=== PATIENT | female | born 1935 | race Caucasian/White ===

== ENCOUNTER 2018-03-05 15:56 | Emergency (ER) | payer MEDICARE ==
[~2018-03-05] VITALS: Ht 167.6 cm; Wt 57.2 kg
[~2018-03-05 15:56] MED LIST: ASPIR 8181 MG PO; BENICAR HCT 201 EACH PO; CELEXA20 MG PO; DAILY VITE1 EACH PO; DIGOXIN125 MCG PO
== END 2018-03-05 17:57 | disposition home or self-care (01) ==
LOC: ER 15:56
DX: L03.116 Cellulitis of left lower limb (principal); S70.362A Insect bite (nonvenomous), left thigh, initial encounter; I48.91 Unspecified atrial fibrillation; F41.9 Anxiety disorder, unspecified
CPT/HCPCS: 93005; 99283

== ENCOUNTER 2018-11-02 19:25 | Observation (INO) | payer MEDICARE ==
[~2018-11-02] VITALS: Ht 167.6 cm; Wt 60.5 kg
--- NOTE | 2018-11-02 19:46 | NUR ---
PT TO RAD FOR STAT CT BRAIN VIA WC
--- NOTE | 2018-11-02 20:09 | Diagnostic Imaging Report ---
EXAMINATION: Head CT without contrast. HISTORY:Intermittent confusion. COMPARISON:CT brain from 10/06/2011. TECHNIQUE: Multidetector axial images were obtained from the foramen magnum to the vertex without contrast. The images were reconstructed using brain and bone algorithms. Thin section brain images were reformatted into coronal and sagittal planes. Dose modulation, iterative reconstruction, and/or weight based adjustment of the mA/kV was utilized to reduce the radiation dose to as low as reasonably achievable. Intravenous contrast: None IMAGE QUALITY: Acceptable. FINDINGS: Skull/scalp: Incidental 1.4 cm subcutaneous soft tissue density lesion in right occipital scalp possibly represents an epidermal inclusion cyst. Parenchyma: Nonspecific few, scattered supratentorial white matter hypodensity are likely related to small vessel ischemic changes. No acute hemorrhage, mass or acute major vascular territorial infarct. Arteries: No density suggestive of thrombosis. Dural sinuses: No abnormal density suggestive of thrombosis. Ventricles: Mild compensated dilatation due to volume loss. No hydrocephalus. Extra-axial spaces: No abnormal density. Brain volume: Generalized age-related cerebral volume loss. Craniocervical junction: No mass, Chiari malformation, or basilar invagination. Sella: No mass. Paranasal/mastoid sinuses: Imaged portions unremarkable. IMPRESSION: 1. No acute intracranial abnormality, particularly no acute hemorrhage, mass or acute major vascular territorial infarct. 2. Mild supratentorial white matter microvascular ischemic changes. 3. Generalized age-related cerebral volume loss. Signed by: Dr. Gabriela Avila M.D. on 11/02/2018 8:06 PM
[2018-11-02 20:27] LABS: BASOPHILS # (AUTO) 0.1 (0.0-0.1); BASOPHILS % 0.5 % (0.0-1.0); EOSINOPHILS # (AUTO) 0.1 (0.0-0.4); EOSINOPHILS % 0.5 % (0.0-6.0); HEMOGLOBIN 14.3 g/dL (12.0-16.0); LYMPHOCYTES # (AUTO) 5.7 (1.0-3.2); LYMPHOCYTES % 58.3 % (18.0-39.1); MEAN CORPUSCULAR HEMOGLOBIN 30.7 pg (28-32); MEAN CORPUSCULAR HGB CONC 33.3 g/dL (31-35); MEAN CORPUSCULAR VOLUME 92.3 fL (81-99); MONOCYTES # (AUTO) 0.6 (0.2-0.8); MONOCYTES % 6.1 % (4.4-11.3); NEUTROPHILS # (AUTO) 3.4 (2.1-6.9); NEUTROPHILS % 34.3 % (38.7-80.0); PLATELET COUNT 237 x10e3/uL (140-360); RED BLOOD COUNT 4.66 x10e6/uL (3.6-5.1); RED CELL DISTRIBUTION WIDTH 12.8 % (11.7-14.4)
[2018-11-02 20:45] LABS: ALANINE AMINOTRANSFERASE 24 IU/L (0-55); ALBUMIN 3.5 g/dL (3.5-5.0); ALBUMIN/GLOBULIN RATIO 1.1 (0.8-2.0); ALKALINE PHOSPHATASE 81 IU/L (40-150); ANION GAP 13.7 mmol/L (8-16); BLOOD UREA NITROGEN 18 mg/dL (7-26); BUN/CREATININE RATIO 24 (6-25); CALCIUM 9.4 mg/dL (8.4-10.2); CARBON DIOXIDE 24 mmol/L (22-29); CHLORIDE 107 mmol/L (98-107); CREATINE KINASE 84 IU/L (29-168); CREATININE, SERUM 0.74 mg/dL (0.57-1.11); EST GLOMERULAR FILTRATION RATE > 60 ML/MIN (60-); GLUCOSE 118 mg/dL (74-118); POTASSIUM 3.7 mmol/L (3.5-5.1); SODIUM 141 mmol/L (136-145)
--- NOTE | 2018-11-02 20:52 | Diagnostic Imaging Report ---
EXAMINATION: CHEST 2 VIEWS INDICATION: ^CONFUSION, ORAL TEMP 99.6 F, CONGESTION PER PT, NONE NOTED ^[id number] ^1939 ^Y COMPARISON: None FINDINGS: TUBES and LINES: None. LUNGS: Lungs are well inflated. Lungs are clear. There is no evidence of pneumonia or pulmonary edema. PLEURA: No pleural effusion or pneumothorax. HEART AND MEDIASTINUM: The cardiomediastinal silhouette is unremarkable. BONES AND SOFT TISSUES: No acute osseous lesion. Soft tissues are unremarkable. UPPER ABDOMEN: No free air under the diaphragm. IMPRESSION: No acute thoracic abnormality. Signed by: Dr. Pushpa Ayon M.D. on 11/02/2018 8:49 PM
[2018-11-02 21:19] LABS: CLARITY,URINE CLEAR (CLEAR); COLOR,URINE YELLOW (YELLOW)
[2018-11-02 21:20] LABS: BACTERIA,URINE FEW /HPF; BILIRUBIN,URINE NEGATIVE (NEGATIVE); EPITHELIAL CELLS,URINE FEW /LPF; KETONES,URINE NEGATIVE (NEGATIVE); LEUKOCYTE ESTERASE ,URINE NEGATIVE (NEGATIVE); NITRITE,URINE NEGATIVE (NEGATIVE); PROTEIN,URINE DIPSTICK NEGATIVE (NEGATIVE); URINE UROBILINOGEN 0.2 mg/dL (0.2 - 1)
[2018-11-02] MEDS ORDERED: BENICAR20 MG PO (22:03)
[2018-11-02] MEDS ORDERED: PROPAFENONE HC150 MG PO (22:04)
[2018-11-02] MEDS ORDERED: WARFARIN SODIU2.5 MG PO (22:06)
[2018-11-02] MEDS ORDERED: WARFARIN SODIUM5 MG PO (22:06)
[2018-11-02 22:56] LABS: INR 2.52
[2018-11-02 22:57] LABS: PARTIAL THROMBOPLASTIN TIME 36.5 seconds (23.8-35.5)
[2018-11-02] MEDS ORDERED: ONDANSETRON HCL INJ 2 MG/ML VIAL IV PRN (23:30)
[2018-11-02] MEDS: SODIUM CHLORIDE 0.9% 1000ML 1,000 ML IV SCH (23:32)
[2018-11-02] MEDS ORDERED: SODIUM CHLORIDE 0.9% 1000ML 1,000 ML ONE (23:33)
--- NOTE | 2018-11-03 00:15 | NUR ---
PT AMBULATED TO BATHROOM, HOSPITAL BED PLACED INTO ROOM FOR COMFORT. PT HAS NO COMPLAINTS AT THIS TIME. WILL CONTINUE TO MONITOR
[2018-11-03 04:47] LABS: BASOPHILS % 0.3 % (0.0-1.0); EOSINOPHILS # (AUTO) 0.1 (0.0-0.4); EOSINOPHILS % 0.8 % (0.0-6.0); HEMOGLOBIN 13.8 g/dL (12.0-16.0); LYMPHOCYTES # (AUTO) 6.5 (1.0-3.2); LYMPHOCYTES % 65.7 % (18.0-39.1); MEAN CORPUSCULAR HEMOGLOBIN 30.8 pg (28-32); MEAN CORPUSCULAR HGB CONC 32.9 g/dL (31-35); MEAN CORPUSCULAR VOLUME 93.8 fL (81-99); MONOCYTES # (AUTO) 0.6 (0.2-0.8); MONOCYTES % 6.2 % (4.4-11.3); NEUTROPHILS # (AUTO) 2.7 (2.1-6.9); NEUTROPHILS % 26.8 % (38.7-80.0); PLATELET COUNT 217 x10e3/uL (140-360); RED BLOOD COUNT 4.48 x10e6/uL (3.6-5.1); RED CELL DISTRIBUTION WIDTH 12.7 % (11.7-14.4)
[2018-11-03 05:10] LABS: ANION GAP 12.6 mmol/L (8-16); BLOOD UREA NITROGEN 15 mg/dL (7-26); BUN/CREATININE RATIO 25 (6-25); CALCIUM 9.2 mg/dL (8.4-10.2); CARBON DIOXIDE 24 mmol/L (22-29); CHLORIDE 106 mmol/L (98-107); CHOL/HDL RATIO 3.1 (3.0-3.6); CHOLESTEROL 172 MD/DL (0-199); CREATININE, SERUM 0.61 mg/dL (0.57-1.11); EST GLOMERULAR FILTRATION RATE > 60 ML/MIN (60-); GLUCOSE 93 mg/dL (74-118); HDL CHOLESTEROL 55 MG/DL (40-60); LDL CHOLESTEROL 101 MG/DL (60-130); POTASSIUM 3.6 mmol/L (3.5-5.1); SODIUM 139 mmol/L (136-145); TRIGLYCERIDES 78 MG/DL (0-149)
--- OUTSIDE RECORDS SUMMARY | 2018-11-03 05:21 | XMS REPORT ---
Author [facility] Address Unknown Phone Unavailable Care Team Providers Care Air Conditioning Technician Name Role Phone Som RIVERA Unavailable Unavailable Problems This patient has no known problems. Allergies, Adverse Reactions, Alerts This patient has no known allergies or adverse reactions. Medications This patient has no known medications. Results Test Description Test Time Test Comments Text Results Atomic Results Result Comments CHEST 2 VIEWS 2018-11-02 20:45:00 [facility] [address] [address] Patient Name: LEEANNA DE LUNA MR #: [id number] : 1935 Age/Sex: 83/F Req #: [id number] Adm Physician: Ordered by: YAN RIVERA MD Report #: [id number] Location: ER Room/Bed: Procedure: [id number] DX/CHEST 2 VIEWS Exam Date: 11/02/18 Exam Time: 1939 REPORT STATUS: Signed EXAMINATION: CHEST 2 VIEWS INDICATION: CONFUSION, ORAL TEMP 99.6 F, CONGESTION PER PT, NONE NOTED [id number] Y COMPARISON: None FINDINGS: TUBES and LINES: None. LUNGS: Lungs are well inflated. Lungs are clear. There is no evidence of pneumonia or pulmonary edema. PLEURA: No pleural effusion or pneumothorax. HEART AND MEDIASTINUM: The cardiomediastinal silhouette is unremarkable. BONES AND SOFT TISSUES: No acute osseous lesion. Soft tissues are unremarkable. UPPER ABDOMEN: No free air under the diaphragm. IMPRESSION: No acute thoracic abnormality. Signed by: Dr. Pushpa Lopez M.D. on 11/02/2018 8:49 PM Dictated By: MUNA LOPEZ MD, MD 48 Transcribed By: KOREY on 11/02/182048 COPY TO: YAN RIVERA MD CT BRAIN WO 2018-11-02 20:02:00 [address] [place] [address] Patient Name: LEEANNA DE LUNA MR #: [id number] : 1935 Age/Sex: 83/F Req #: [id number] Adm Physician: Ordered by: YAN RIVERA MD Report #: [id number] Location: ER Room/Bed: Procedure: [id number] CT/CT BRAIN WO Exam Date: 11/02/18 Exam Time: 1939 REPORT STATUS: Signed EXAMINATION: Head CT without contrast. HISTORY:Inter mittent confusion. COMPARISON:CT brain from 10/06/2011. TECHNIQUE: Multidetector axial images were obtained from the foramen magnum to the vertex without contrast. The images were reconstructed using brain and bone algorithms. Thin section brain images were reformatted into coronal and sagittal planes. Dose modulation, iterative reconstruction, and/or weight based adjustment of the mA/kV was utilized to reduce the radiation dose to as low as reasonably achievable. Intravenous contrast: None IMAGE QUALITY: Acceptable. FINDINGS: Skull/scalp: Incidental 1.4 cm subcutaneous soft tissue density lesion in right occipital scalp possibly represents an epidermal inclusion cyst. Parenchyma: Nonspecific few, scattered supratentorial white matter hypodensity are likely related to small vessel ischemic changes. No acute hemorrhage, mass or acute major vascular territorial infarct. Arteries: No density suggestive of thrombosis. Dural sinuses: No abnormal density suggestive of thrombosis. Ventricles: Mild compensated dilatation due to volume loss. No hydrocephalus. Extra-axial spaces: No abnormal density. Brain volume: Generalized age-related cerebral volume loss. Craniocervical junction: No mass, Chiari malformation, or basilar invagination. Sella: No mass. Paranasal/mastoid sinuses: Imaged portions unremarkable. IMPRESSION: 1. No acute intracranial abnormality, particularly no acute hemorrhage, mass or acute major vascular territorial infarct. 2. Mild supratentorial white matter microvascular ischemic changes. 3. Generalized age-related cerebral volume loss. Signed by: Dr. Gabriela Avila M.D. on 11/02/2018 8:06 PM Dictated By: GABRIELA AVILA MD 05 Transcribed By: KOREY on 11/02/182005 COPY TO: YAN RIVERA MD
--- NOTE | 2018-11-03 05:38 | NUR ---
DR LESLIE AT BEDSIDE ASSESSING PT
[2018-11-03 05:47] LABS: CREATINE KINASE 60 IU/L (29-168)
--- NOTE | 2018-11-03 06:30 | History and Physical ---
REASON FOR ADMISSION: TIA. HISTORY OF PRESENT ILLNESS: Patient is a lady well known to me with a history of AFib, hypertension, who was in her usual state of health where she had a sudden onset around 4 p.m. of confusion, difficulty speaking where she also noticed her blood pressure to be on the elevated side. She then presented to the emergency room where she is currently doing well. States at the current time that she feels like her symptoms have resolved. Initial workup in the ER is unremarkable. PAST MEDICAL HISTORY: Significant for hypertension, AFib. MEDICATIONS: See DEC. ALLERGIES: SEE DEC. SOCIAL HISTORY: Lives at home with her . Nonsmoker and nondrinker. FAMILY HISTORY: Hypertension. PHYSICAL EXAMINATION VITALS: Temperature is 98 degrees, blood pressure 156/72, pulse 80, sats 98% on room air. GENERAL: She is in no apparent distress laying in bed. NECK: Supple. No lymphadenopathy. No . No . HEART: Irregularly irregular. LUNGS: Clear to auscultation bilaterally. ABDOMEN: Good bowel sounds. Soft and nontender. EXTREMITIES: No clubbing or cyanosis. NEUROLOGICAL: Nonfocal. Moves all extremities times 4. Cranial nerves II-XII are intact. ASSESSMENT AND PLAN 1. Transient ischemic attack: Appears to have resolved. Will go ahead and do the workup with carotid Dopplers and MRI. Consult Dr. Ochoa from neurology. 2. Hypertension: Will continue with home medications and monitor blood pressure. 3. History of atrial fibrillation: Will continue with her Coumadin until she is therapeutic on Rythmol. 4. History of anxiety: Hold off on for the time being due to the just to see if she needs this anymore. Please see hospital chart for details. Job#: [id number] VIRGILIO
[2018-11-03] MEDS: SODIUM CHLORIDE 0.9% 1000ML 1,000 ML IV SCH ×2 (06:51→17:37)
--- NOTE | 2018-11-03 06:54 | NUR ---
RECEIVED REPORT FROM KATHLEEN Crump RN FOR CONTINUATION OF CARE. PT RESTING QUIETLY WITH EYES CLOSED. EASILY AROUSES TO VOICE. NAD AT THIS TIME. AWAITING ADMISSION
--- NOTE | 2018-11-03 07:03 | NUR ---
PT AMBULATED TO THE RESTROOM WITH STEADY GAIT.
--- NOTE | 2018-11-03 07:04 | NUR ---
PER REPORT PT PENDING MRI, CAROTID DOPPLER AND ECHO
[2018-11-03 07:24] LABS: ANISOCYTOSIS SLIGHT; EOSINOPHILS % (MANUAL) 1 % (0-7); HYPOCHROMASIA SLIGHT; LYMPHOCYTES % (MANUAL) 62 % (19-48); MONOCYTES % (MANUAL) 7 % (3.4-9.0); NEUTROPHILS % (MANUAL) 26 % (40-74); RBC MORPHOLOGY COMMENT NORMAL
[2018-11-03 07:25] LABS: PLATELET ESTIMATE ADEQUATE; PLATELET MORPHOLOGY COMMENT NORMAL
--- NOTE | 2018-11-03 08:07 | NUR ---
CALLED DR. FLOWER TO NOTIFY HER OF CONSULT
--- NOTE | 2018-11-03 08:11 | NUR ---
CALLED [facility] FOR FOOD TRAY FOR PATIENT
--- NOTE | 2018-11-03 08:30 | NUR ---
ECHO WAS DONE AT BEDSIDE
--- NOTE | 2018-11-03 09:06 | NUR ---
SPOKE WITH DR. LESLIE ABOUT CONTINUING PTS CELEXA. SHE WAS UPSET THAT IT WASN'T CONTINUED. SHE SAYS THAT SHE HAS TO HAVE IT
[2018-11-03] MEDS: PROPAFENONE HCL 150 MG TAB PO SCH ×2 (09:25→22:06)
[2018-11-03] MEDS: ASPIRIN 81 MG ENTERIC COATED PO SCH (09:25)
[2018-11-03] MEDS: CITALOPRAM HYDROBROMIDE 20 MG TAB PO SCH (09:25)
[2018-11-03] MEDS: OLMESARTAN 20 MG TAB PO SCH (10:25)
--- NOTE | 2018-11-03 12:24 | Diagnostic Imaging Report ---
Examination: MRI BRAIN WITHOUT CONTRAST History: 83 year old female with disorientation. Comparison studies: Brain CT 11/02/2018. Technique: Sagittal T2; axial DWI, FLAIR, GRE or SWI, T1, Coronal FLAIR. Intravenous contrast: None Findings: Scalp: No abnormal signal. No masses. Bone marrow: Normal in signal intensity. Brain volume: Age appropriate volume loss. Ventricles: Ex vacuo dilation. No hydrocephalus. Extra-axial spaces: No abnormalities. Parenchyma: There are patchy and punctate areas of T2/FLAIR hyperintensity in the periventricular and subcortical white matter, nonspecific. No masses, hemorrhage, or acute vascular insults. Suprasellar and sellar region: No abnormalities. Craniocervical junction: No abnormalities. The foramen magnum is patent. No Chiari malformations. Vessels: Normal flow-voids in the arteries and sinuses. Additional findings: Bilateral cataracts. Mild inflammatory mucosal thickening of the bilateral ethmoid air cells. IMPRESSION: 1. No acute intracranial abnormalities when compared prior head CT dated 11/02/2018. 2. Mild chronic microvascular ischemic change. Signed by: Dr. Mere Correa M.D. on 11/03/2018 12:21 PM
--- NOTE | 2018-11-03 12:40 | NUR ---
DR. FLOWER AT BEDSIDE RIGHT NOW
[2018-11-03 12:49] LABS: CREATINE KINASE 56 IU/L (29-168)
--- NOTE | 2018-11-03 13:08 | NUR ---
PT RESTING QUIETLY WITH AT BEDSIDE. NAD AT THIS TIME. NO CHANGES SINCE LAST ROUNDING. PT AWAITING ADMISSION
--- NOTE | 2018-11-03 14:51 | NUR ---
PATIENT RESTING QUIETLY WATCHING TV. NAD AT THIS TIME. STILL AWAITING A ROOM FOR ADMIT
--- NOTE | 2018-11-03 16:10 | Consultation ---
DATE OF CONSULTATION: November 03, 2018 NEUROLOGY CONSULT HISTORY OF PRESENT ILLNESS: Ms. Buitrago is an 83-year-old right hand dominant woman with a past medical history significant for hypertension, atrial fibrillation, prior pulmonary emboli, and a history of severe headache, admitted to [facility] on November 02, 2018, with confusion. At approximately 1600 on the day of admission, the patient experienced the sudden onset of confusion. When asked to further describe her confusion, Ms. Buitrago reports there were "2 different things going on." More specifically, she reports the top part of her head and the bottom part of her head had different things going on. Her , who is at the bedside, endorses deficits of immediate recall and short-term memory. For example, as he was driving Ms. Buitrago to the emergency center at [facility], the patient asked what street the hospital was located on. Mr. Buitrago informed his the hospital was located on [address]. Within 2-3minutes, Ms. Buitrago asked the same question again, not recalling her 's earlier answer. Neither the patient nor her report Ms. Buitrago being disoriented to person or place. Ms. Buitrago reports recognizing her . Her agrees with this assessment. Ms. Buitrago does not report other symptoms associated with the above described confusion. Specifically, she does not report a visual field cut or other disturbance, dysarthria, aphasia, facial weakness, hemiparesis, hemiparesis, hemihypoesthesia, or dizziness. The patient does acknowledge poor balance, impairment of gait, and mild incoordination, but reports these are present at baseline. Shortly after the patient's symptoms began, Ms. Buitrago's took her blood pressure. It was found to be markedly elevated at 186/94 mmHg. Concern regarding the patient's high blood pressure, as well as her confusion, Ms. Buitrago was brought to the emergency center at [facility] for further evaluation. The above described symptoms gradually resolved over a period of several hours. The exact time these symptoms resolved is not known. Ms. Buitrago has not experienced similar symptoms previously. As stated above, the patient does have a known history of atrial fibrillation for which she takes warfarin. Routine blood work has shown the patient is adequately anticoagulated at this time. REVIEW OF SYSTEMS: Confusion, impairment of balance and gait and incoordination (chronic). Otherwise, the 12-point review of systems is negative. PAST MEDICAL HISTORY: Hypertension, atrial fibrillation, history of severe headaches, prior pulmonary emboli. PAST SURGICAL HISTORY: Bilateral cataract removal, cholecystectomy, appendectomy. PAST HOSPITALIZATIONS: Surgeries/procedures as listed, atrial fibrillation with RVR (multiple admissions), pulmonary emboli. FAMILY MEDICAL HISTORY: The patient's paternal and maternal grandparents are . Their medical histories are unknown. The patient's father is from metastatic prostate cancer. Her mother is from liver cancer. Ms. Buitrago had 5 siblings, 3 brothers and 2 sisters. All of her brothers are . Two brothers are from heart disease. One brother is from asbestosis. This brother did have heart disease as well. One sister is from lung cancer. The second sister is alive, but has had a mild stroke in the past. Ms. Patel has 2 children, both sons, who are alive and healthy. SOCIAL HISTORY: The patient is . She is retired. Ms. Buitrago does not report current or prior tobacco, alcohol, or recreational drug use. HOME MEDICATIONS: Reviewed. Please see the list of home medications available in the electronic medical record. ALLERGIES: MEPERIDINE, METOPROLOL. NO KNOWN FOOD ALLERGIES. NO KNOWN ALLERGIES TO LATEX. THE PATIENT DOES HAVE A DOCUMENTED ALLERGY TO IODINE. PHYSICAL EXAMINATION VITAL SIGNS: Height 66 inches, weight 126 pounds, BMI 20.3 kg per meter squared, blood pressure 141/55 mmHg, pulse 72 beats per minute, respiratory rate 16 breaths per minute, oxygen saturation 100% on room air. GENERAL: The patient is awake and alert. Does not appear distressed. HEENT: Normocephalic and atraumatic. Pupils are equal, round, and reactive to light. Moist mucous membranes. NECK: Supple. No appreciable thyromegaly. No appreciable carotid bruits. CARDIOVASCULAR: S1 and S2. Regular rate and rhythm. No murmurs, rubs, or gallops. RESPIRATORY: Clear to auscultation bilaterally. No wheezes, rhonchi or rales. EXTREMITIES: The skin is warm and dry. No clubbing or cyanosis. There is trace pretibial pitting edema present. The posterior tibial and dorsalis pedis pulses are 2+ and symmetric. SKIN: No rashes or lesions. NEUROLOGIC: Memory/attention: The patient is awake and alert. Oriented to person, place, time, and situation. CRANIAL NERVES: Cranial nerve I not tested. Cranial nerve II, III, IV, and : Pupils are equal and round, react briskly to light (from 3 mm to 2 mm). Extraocular movements intact. No nystagmus. Cranial nerve V: Sensation to light touch and pinprick is intact in the bilateral V1 through V3 distributions. Strength of the temporalis and masseter muscles is within normal limits. Cranial nerve VII: The face is symmetric as are all facial movements. Strength is within normal limits. Cranial nerve VIII: Hearing is intact to finger rub bilaterally. Cranial nerve IX, X: The soft palate elevates equally and symmetrically. Cranial nerve XI: Normal strength of the bilateral sternocleidomastoid and trapezius muscles. Cranial nerve XII: The tongue protrudes midline and moves symmetrically from side to side. STRENGTH: Bulk is normal. Strength is 5/5 in the bilateral deltoids, biceps, triceps, wrist flexors and extensors, finger flexors and extensors, intrinsic hand muscles, hip flexors, knee flexors and extensors, ankle dorsiflexion and plantar flexion, and intrinsic foot muscles. Tone is normal. DTRs: Are 1+ and symmetric at the triceps, biceps, brachioradialis, and patellas. Deep tendon reflexes are absent and symmetric at the Achilles. Plantar responses are flexor bilaterally. SENSATION: Is intact to light touch and pinprick in both arms and both legs. CEREBELLAR: Jeufqv-kucu-jjmtvx and heel-latif movements are intact without dysmetria or other impairment. GAIT: Deferred. SPEECH: Spontaneous speech is normal without appreciable dysarthria or aphasia. Repetition is intact. INVOLUNTARY MOVEMENTS: None. PRONATOR DRIFT: None. LABORATORY DATA: Most recent basic metabolic panel is unremarkable. The patient's liver function panel is unremarkable. Cardiac enzymes are negative times 2. The 3rd set of cardiac enzymes is pending. Total cholesterol 172, triglycerides 78, LDL cholesterol 101, HDL cholesterol 55. The CBC with differential and platelets reveals a white blood cell count of 9.96 with a right shift with 26.8% neutrophils, 65.7% lymphocytes, 6.2% monocytes, 0.8% eosinophils, and 0.3% basophils. The hemoglobin and hematocrit are 13.8 and 42, respectively. The platelet count is 217,000. PT 29, INR 2.52, PTT 36.5. A urinalysis was unremarkable. DIAGNOSTIC STUDIES: Electrocardiogram on November 02, 2018, sinus rhythm at 66 beats per minute with first-degree AV block. CT of the brain without contrast on November 02, 2018, on my review, there is no evidence of recent large territorial ischemia, hemorrhage, mass, or mass effect. Cerebral volumes are appropriate for age. There are findings compatible with mild to moderate chronic small vessel ischemic disease. Echocardiogram on November 03, 2018, ejection fraction 60%. Trace tricuspid regurgitation. MRI of the brain without contrast on November 03, 2018, on my review, there is no evidence of recent large territorial ischemia, hemorrhage, mass, or mass effect. Cerebral volumes are appropriate for age with compensatory dilatation of the ventricles. There are scattered T2/flair in the supratentorial deep white matter compatible with mild chronic small vessel ischemic disease. ASSESSMENT AND PLAN: Ms. Buitrago is a an 83-year-old right hand dominant woman with multiple vascular risk factors, admitted to [facility] on November 02, 2018, following the abrupt onset of confusion, persisting for several hours, then spontaneously resolving. The patient's neurological examination is nonfocal. She is oriented to person, place, time, and situation. The patient's laboratory data and other diagnostic studies have been reviewed and are documented above. The most important consideration in transient neurological deficits is a transient ischemic attack. However, transient ischemic attacks are commonly only 10-15 minutes in duration. With symptoms of several hours of duration, it would be expected to see some findings on neuroimaging studies. However, as detailed above, there are no acute findings on Ms. Buitrago's neuroimaging studies. In addition, the patient is adequately anticoagulated at present. This too makes the diagnosis of transient ischemic attack seem less likely. Other possible diagnoses include a subclinical seizure, hypertensive encephalopathy, or transient global amnesia. RECOMMENDATIONS: Are as follows: 1. Bilateral carotid artery ultrasound with Doppler has been ordered. Follow up the results. 2. A routine EEG will be ordered to evaluate for abnormal electrical activity, which may predispose the patient to seizures. 3. Continue treatment with the patient's home medication of Coumadin as prescribed. 4. The patient's blood pressure should be gradually normalized. Monitor vital signs per unit protocol. 5. In the setting of transient ischemic attack or stroke, the goal total cholesterol is less than 200 with an LDL of less than 70. If Ms. Buitrago is determined to have experienced a transient ischemic attack, treatment with a statin medication may be necessary to lower her LDL cholesterol to goal. 6. A hemoglobin A1c will be ordered to evaluate for prediabetes or diabetes. Tight glycemic control is recommended while the patient is hospitalized. 7. Speech and physical therapy consultations will not be ordered at present because the patient has no deficits. 8. GI prophylaxis with Pepcid 20 mg by mouth twice daily with meals. DVT prophylaxis with Lovenox 40 mg subcutaneously daily. 9. Defer treatment of the remaining medical comorbidities to the primary and other services following the patient. Thank you for this consultation. I will continue to follow the patient while she remains in the hospital. Time spent was 70 minutes. Job#: [id number] VIRGILIO VALVERDE
[2018-11-03] MEDS ORDERED: ENOXAPARIN SOD INJ 40 MG/0.4 ML SYR SC SCH (17:00)
[2018-11-03] MEDS ORDERED: WARFARIN SOD 2.5 MG TAB PO SCH (17:00)
[2018-11-03] MEDS: FAMOTIDINE 20 MG TAB PO SCH (17:20)
--- NOTE | 2018-11-03 17:36 | NUR ---
PT SITTING UP IN BED EATING DINNER. NO COMPLAINTS AT THIS TIME. WILL CONTINUE TO MONITOR. PT AWAITING ADMIT
--- NOTE | 2018-11-03 18:52 | NUR ---
PT STATES PAIN IMPROVED AFTER THE MORPHINE. PAIN DOWN TO 4/10 NOW. SAYS TOLERABLE NOW.
--- NOTE | 2018-11-03 19:50 | NUR ---
REPORT RECEIVED FROM [facility] NURSE JOSEPH.
[2018-11-03 20:00] VITALS: BP 138/64
--- NOTE | 2018-11-03 21:00 | NUR ---
RECEIVED PATIENT FROM OBSERVATION UNIT VIA WHEELCHAIR. WITH TELEMETRY AND ON GOING IV FLUIDS. ASSESSMENT DONE. VITAL SIGNS WITHIN NORMAL. NO COMPLAINT OF PAIN.
[2018-11-03 21:10] VITALS: BP 155/74
[2018-11-04] VITALS (8 sets, daily range): BP systolic 134–191; BP diastolic 62–81
[2018-11-04] MEDS: SODIUM CHLORIDE 0.9% 1000ML 1,000 ML IV SCH ×2 (03:06→08:43)
--- NOTE | 2018-11-04 07:25 | NUR ---
REPORT GIVEN TO ONCOMING NURSE.
--- NOTE | 2018-11-04 08:40 | NUR ---
Pt received resting in bed. Alert and oriented x4. No SOB or discomfort noted or voiced but slight swelling noted to lower extremities. Oriented to staff and surroundings. Encouraged to press call white if help needed. Call white within reach. All meds given as ordered. Will monitor
[2018-11-04] MEDS: ASPIRIN 81 MG ENTERIC COATED PO SCH (08:43)
[2018-11-04] MEDS: FAMOTIDINE 20 MG TAB PO SCH ×2 (08:43→17:24)
[2018-11-04] MEDS: EYE LUBRICANT OP SCH ×2 (08:43→17:00)
[2018-11-04] MEDS: CITALOPRAM HYDROBROMIDE 20 MG TAB PO SCH (08:44)
[2018-11-04] MEDS: PROPAFENONE HCL 150 MG TAB PO SCH ×2 (08:44→21:00)
[2018-11-04] MEDS: OLMESARTAN 20 MG TAB PO SCH (08:44)
[2018-11-04] MEDS ORDERED: ARTIFICIAL TEARS (OPTH) 15 ML BTL OU SCH (09:00)
--- NOTE | 2018-11-04 13:12 | NUR ---
VERDE GIVEN WITH EXPLANATION. ORIGINAL COPY SIGNED AND PLACED IN CHART AND COPY OF ORIGINAL DOCUMENT GIVEN TO PATIENT AND PLACED IN CARE TRANSITION FOLDER AT BEDSIDE. PATIENT WITH NO FURTHER QUESTIONS. CM CONTACT INFO GIVEN TO PATIENT AT BEDSIDE.
[2018-11-04] MEDS ORDERED: OLMESARTAN 20 MG TAB PO SCH ×3 (14:45→15:45)
[2018-11-04] MEDS ORDERED: OLMESARTAN MEDOXOMIL 5 MG TABLET PO ONE (15:30)
[2018-11-04] MEDS ORDERED: WARFARIN SOD 5 MG TAB PO SCH (17:00)
--- NOTE | 2018-11-04 18:18 | Electroencephalogram ---
DATE OF STUDY: November 04, 2018 PROCEDURE: Electroencephalogram. PATIENT HISTORY: This 83-year-old woman with a history of transient confusion is having an EEG for evaluation of epileptiform activity. The patient is not taking any medications that might affect the EEG. TECHNIQUE: This is a routine, portable EEG, recorded digitally, using the international 10/20 electrode placement system, and done in the inpatient setting with the patient awake and asleep. The EEG is technically limited because of muscle and electrical artifact. DESCRIPTION: Well-organized, well-sustained 9-10 Hertz activity is best seen symmetrical over the posterior head region. No focal or epileptiform activity is recorded. Sleep is recorded with well-organized spindles and vertex waves. Photic stimulation does produce a driving response. Hyperventilation does not produce a slowing response. INTERPRETATION: This electroencephalogram is normal with the patient awake and asleep. No epileptiform discharges are seen. Clinical correlation is recommended. Job#: [id number] [place]
--- NOTE | 2018-11-04 18:49 | NUR ---
Pt resting in bed. No complaints voiced. Emotional support given. Call white within reach. Will endorse to next shift
--- NOTE | 2018-11-04 19:41 | NUR ---
Received change of shift report from AM nurse. Walking rounds completed.
[2018-11-04] MEDS ORDERED: METRONIDAZOLE TP SCH (21:00)
[2018-11-05 00:40] VITALS: BP 156/72
--- NOTE | 2018-11-05 04:30 | NUR ---
Patient resting quitly at this time. No noted pain or discomfort.
[2018-11-05 05:30] VITALS: BP 162/74
--- NOTE | 2018-11-05 07:10 | NUR ---
RCD PT AT BED PT IS ALERT AND ORIENTED PT RESTING ON BED NO SIGNS OF ANY DISTRESS NOTED IV PATENT BED LOW AND LOCKED CALL LIGHT IN REACH
[2018-11-05] MEDS: FAMOTIDINE 20 MG TAB PO SCH (07:30)
[2018-11-05 07:47] VITALS: BP 163/73
[2018-11-05 08:30] VITALS: BP 163/73
[2018-11-05] MEDS: ASPIRIN 81 MG ENTERIC COATED PO SCH (08:54)
[2018-11-05] MEDS: EYE LUBRICANT OP SCH (08:54)
[2018-11-05] MEDS: CITALOPRAM HYDROBROMIDE 20 MG TAB PO SCH (08:54)
[2018-11-05] MEDS: PROPAFENONE HCL 150 MG TAB PO SCH (08:54)
[2018-11-05] MEDS ORDERED: OLMESARTAN 20 MG TAB PO SCH (09:00)
--- NOTE | 2018-11-05 09:42 | NUR ---
CASE MANAGEMENT INITIAL ASSESSMENT Chief Deputy Coroner to bedside to discuss plan of care with patient/family. CM/SW role and care transitions discussed. Anticipated discharge plan discussed along with duration of care. CM discussed patients right to make decisions in care. CM/SW work hours given. Patient lives: [place] [address] Admit/Transfer: ED POA/Emergency contact: - REAZ [place]- [phone] Current/Previous Home Health: NONE PCP/Follow-up Care: N/A Current/Previous DME: NONE Other Services: NONE Employment Status: RETIRED Areas of Concerns: NONE Referral Needs: NONE Education Needs: NONE IMM/VERDE given and signed (if applicable): VERDE Goal for discharge: DISCHARGE HOME WITH NO NEEDS CM left business card at the bedside with contact information. Name and number was also written on the patients whiteboard. Patient verbalized understanding of discussion. CM will follow-up with ongoing discharge and transition of care needs.
[2018-11-05] MEDS ORDERED: HYDROCHLOROTHIA25 MG (09:53)
--- NOTE | 2018-11-05 09:54 | NUR ---
PT WENT HOME IN SAFE CONDITION WITH HER
== END 2018-11-05 10:29 | disposition home or self-care (01) ==
LOC: ER 19:25 → ERHOLD 11-03 05:18 → IMCU 11-03 18:41 → MED/SURG2 11-03 21:06
PROVIDERS: ADMIT Internal Medicine; ATTEND Internal Medicine
DX: I10 Essential (primary) hypertension (principal); R41.0 Disorientation, unspecified; I48.91 Unspecified atrial fibrillation; F41.9 Anxiety disorder, unspecified; Z79.01 Long term (current) use of anticoagulants; Z88.8 Allergy status to other drugs, medicaments and biological substances; Z86.711 Personal history of pulmonary embolism; R42 Dizziness and giddiness
CPT/HCPCS: 36415 ×3; 70450; 70551; 71046; 80048; 80053; 80061; 81001; 82550 ×2; 82553 ×2; 82948; 83036; 84484 ×2; 85025 ×2; 85610; 85730; 93005; 93306; 93880; 95816; 96361; 97139; 99284; G0378 ×3; J1650; J7030 ×3

== ENCOUNTER → 2018-11-22 | Outpatient (CLI) | payer MEDICARE ==
[~2018-11-22] MED LIST changes: +BENICAR20 MG PO; +HYDROCHLOROTHIA25 MG; +PROPAFENONE HC150 MG PO; +WARFARIN SODIU2.5 MG PO; +WARFARIN SODIUM5 MG PO
--- NOTE | 2018-11-22 14:44 | Diagnostic Imaging Report ---
Radiographs of the left hip - 2 views HISTORY: Pain COMPARISON: None available. FINDINGS: Bones: No acute displaced fracture. Osseous alignment is within normal limits. Joints: Scattered degenerative change. No osseous erosion Soft tissues: The soft tissues appear unremarkable. IMPRESSION: Scattered degenerative change. No osseous erosion Signed by: Dr. Thomas Jacobs M.D. on 11/22/2018 2:41 PM
--- NOTE | 2018-11-22 14:45 | Diagnostic Imaging Report ---
Radiographs of the left knee - 3 views HISTORY: Pain COMPARISON: None available. FINDINGS: Bones: No acute displaced fracture. Osseous alignment is within normal limits. 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 No osseous erosion. Soft tissues: The soft tissues appear unremarkable. 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 No osseous erosion. Signed by: Dr. Thomas Jacobs M.D. on 11/22/2018 2:42 PM
== END ==
LOC: RAD 13:27
PROVIDERS: ATTEND Internal Medicine
DX: M25.552 Pain in left hip (principal); M25.562 Pain in left knee

== ENCOUNTER 2019-04-09 09:02 | Emergency (ER) | payer MEDICARE ==
[~2019-04-09] VITALS: Ht 167.6 cm; Wt 58.5 kg
[2019-04-09] MEDS ORDERED: SODIUM CHLORIDE 0.9% 1000ML 1,000 ML IV STA (09:28)
[2019-04-09 09:49] LABS: BASOPHILS % 0.3 % (0.0-1.0); EOSINOPHILS # (AUTO) 0.1 (0.0-0.4); EOSINOPHILS % 0.9 % (0.0-6.0); HEMATOCRIT 46.1 % (34.2-44.1); HEMOGLOBIN 15.5 g/dL (12.0-16.0); LYMPHOCYTES # (AUTO) 4.5 (1.0-3.2); LYMPHOCYTES % 48.7 % (18.0-39.1); MEAN CORPUSCULAR HEMOGLOBIN 30.6 pg (28-32); MEAN CORPUSCULAR HGB CONC 33.6 g/dL (31-35); MEAN CORPUSCULAR VOLUME 91.1 fL (81-99); MONOCYTES # (AUTO) 0.7 (0.2-0.8); MONOCYTES % 7.8 % (4.4-11.3); NEUTROPHILS # (AUTO) 3.9 (2.1-6.9); NEUTROPHILS % 42.2 % (38.7-80.0); PLATELET COUNT 220 x10e3/uL (140-360); RED BLOOD COUNT 5.06 x10e6/uL (3.6-5.1); RED CELL DISTRIBUTION WIDTH 12.9 % (11.7-14.4)
[2019-04-09 09:50] LABS: BILIRUBIN,URINE NEGATIVE (NEGATIVE); CLARITY,URINE CLEAR (CLEAR); COLOR,URINE YELLOW (YELLOW); KETONES,URINE NEGATIVE (NEGATIVE); LEUKOCYTE ESTERASE ,URINE NEGATIVE (NEGATIVE); NITRITE,URINE NEGATIVE (NEGATIVE); PROTEIN,URINE DIPSTICK NEGATIVE (NEGATIVE); URINE UROBILINOGEN 0.2 mg/dL (0.2 - 1)
[2019-04-09 09:59] LABS: INR 2.5; PROTHROMBIN TIME 27.7 seconds (11.9-14.5)
[2019-04-09 10:00] LABS: PARTIAL THROMBOPLASTIN TIME 36.8 seconds (23.8-35.5)
[2019-04-09 10:02] LABS: RBC,URINE 0-5 /HPF (0-5); WBC,URINE (MAN) 0-5 /HPF (0-5)
[2019-04-09 10:03] LABS: BACTERIA,URINE FEW /HPF; EPITHELIAL CELLS,URINE FEW /LPF
[2019-04-09 10:09] LABS: ALANINE AMINOTRANSFERASE 38 IU/L (0-55); ALBUMIN 3.9 g/dL (3.5-5.0); ALBUMIN/GLOBULIN RATIO 1.1 (0.8-2.0); ALKALINE PHOSPHATASE 97 IU/L (40-150); ANION GAP 12.1 mmol/L (8-16); BLOOD UREA NITROGEN 11 mg/dL (7-26); BUN/CREATININE RATIO 15 (6-25); CARBON DIOXIDE 29 mmol/L (22-29); CHLORIDE 101 mmol/L (98-107); CREATINE KINASE 67 IU/L (29-168); CREATININE, SERUM 0.73 mg/dL (0.57-1.11); EST GLOMERULAR FILTRATION RATE > 60 ML/MIN (60-); GLUCOSE 111 mg/dL (74-118); MAGNESIUM 2.5 MG/DL (1.3-2.1); POTASSIUM 3.1 mmol/L (3.5-5.1); SODIUM 139 mmol/L (136-145)
[2019-04-09 10:24] LABS: LIPASE 68 U/L (8-78)
--- NOTE | 2019-04-09 10:44 | Diagnostic Imaging Report ---
EXAMINATION: CHEST SINGLE (PORTABLE) COMPARISON: Chest x-ray 04/09/2019 INDICATION: Diarrhea, abdominal pain ^Abd pain DISCUSSION: Frontal view of the chest obtained at 1020 hours. HEART AND MEDIASTINUM: The cardiomediastinal silhouette is unremarkable. LINES: None. LUNGS: The lungs are diffusely hyperinflated. Rounded airspace opacity in the right lung base is suggestive of infiltrate. No interstitial edema. No vascular congestion. PLEURA: No pleural effusion or pneumothorax. BONES AND SOFT TISSUES: No focal osseous lesion. The soft tissues are normal. IMPRESSION: Right basilar airspace opacity is suggestive of infiltrate. Stable pulmonary hyperinflation suggestive of small airways disease. Signed by: Dr. Pedro Naegl MD on 04/09/2019 10:41 AM
--- NOTE | 2019-04-09 11:18 | NUR ---
rec'd report in walking rounds with hadley moon for continuity of care.
[2019-04-09] MEDS ORDERED: POTASSIUM CHLORIDE 20 MEQ TAB CR PO NR (12:28)
--- NOTE | 2019-04-09 12:36 | Diagnostic Imaging Report ---
CT Abdomen and Pelvis without contrast INDICATION: Lower abdominal pain and diarrhea TECHNIQUE: Thin collimation axial images obtained from the diaphragm to the level of the pubic symphysis without nonionic intravenous contrast. Oral contrast was administered. Dose reduction techniques used: Automated exposure control, adjustment of the mAs and/or kVp according to patient size, standardized low-dose protocol, and/or iterative reconstruction technique. RADIATION DOSE: Total DLP: 566 mGy*cm Estimated effective dose: (DLP x 0.015 x size factor) mSv CTDIvol has been reviewed. It is below the limits set by the Radiation Protocol Committee (RPC). COMPARISON: Chest x-ray 04/09/2019. ABDOMEN FINDINGS: Lung Bases: Focal consolidation in the anterior basal segment of the right lower lobe. Left lung base is clear. The visualized portion of the mediastinum is normal. Liver: Normal in attenuation. There are 2 subcentimeter low attenuating lesions in segment 2. The larger measures 5 mm. Gallbladder: Absent. Biliary tree: Normal Pancreas: Normal attenuation without mass. Spleen: Normal size without mass. Adrenal Glands: No evidence for mass. Kidneys: Right: Punctate calculus in the lower pole. Mild fullness of the renal pelvis. No calyceal dilatation. No renal edema or perinephric inflammation. Left: No renal calculus. No cortical mass or hydronephrosis Lymph Nodes: No lymphadenopathy. Aorta: Normal in diameter. PELVIS FINDINGS: Bowel: Stomach: Contains enteric contrast and appears normal. Small Bowel: Contains enteric contrast. No dilatation or mural thickening. Large Bowel: Unopacified. Moderate to large amount of stool throughout the colon. No focal mural thickening or pericolonic inflammation. There may be a few diverticula in the sigmoid colon. Appendix: Not visualized. Bladder: Well distended and is normal. Ureters: The right ureter is normal in diameter distal to the UPJ. No evidence of calculus. Left ureter is normal in diameter throughout its course without calculus. The uterus is present and normal in morphology. There are calcified the parametrial vasculature. No adnexal mass. Peritoneum/retroperitoneum: No free fluid or fluid collection. Bones: The bones are diffusely demineralized. There are degenerative changes of the hips and spine. There is a bone island in the posterior left iliac wing. Soft tissues: Subcutaneous calcification in the lateral left pelvis measures 2 cm. IMPRESSION: 1. Large amount of stool throughout the colon. No evidence of bowel obstruction or inflammation. Nonvisualization of the appendix. 2. Prominent of the right renal collecting system without evidence of edema or josefa hydronephrosis. This may be the result of UPJ narrowing. Punctate right intrarenal calculus. 3. Right basilar airspace opacity may represent pneumonia in the appropriate clinical setting. Signed by: Dr. Pedor Nagel MD on 04/09/2019 12:32 PM
== END 2019-04-09 13:35 | disposition home or self-care (01) ==
LOC: ER 09:02
DX: J15.9 Unspecified bacterial pneumonia (principal); R19.7 Diarrhea, unspecified; R10.32 Left lower quadrant pain; R10.31 Right lower quadrant pain; Z79.01 Long term (current) use of anticoagulants; I48.91 Unspecified atrial fibrillation; I10 Essential (primary) hypertension; F41.9 Anxiety disorder, unspecified; Z86.73 Personal history of transient ischemic attack (TIA), and cerebral infarction without residual deficits; Z88.8 Allergy status to other drugs, medicaments and biological substances
CPT/HCPCS: 36415; 71045; 74176; 80053; 81001; 82550; 82553; 83690; 83735; 84484; 85025; 85610; 85730; 86850; 86900; 93005; 99284; J7030

== ENCOUNTER 2020-11-17 13:49 | Observation (INO) | payer MEDICARE ==
[~2020-11-17] VITALS: Ht 167.6 cm; Wt 58.5 kg
[2020-11-17] MEDS ORDERED: DILTIAZEM HCL 5 MG/ML 5 ML VIAL IV NR (14:30)
[2020-11-17 14:40] LABS: BASOPHILS # (AUTO) 0.1 (0.0-0.1); BASOPHILS % 0.3 % (0.0-1.0); EOSINOPHILS # (AUTO) 0.1 (0.0-0.4); EOSINOPHILS % 0.9 % (0.0-6.0); HEMATOCRIT 49.5 % (34.2-44.1); HEMOGLOBIN 16.2 g/dL (12.0-16.0); LYMPHOCYTES # (AUTO) 8.6 (1.0-3.2); LYMPHOCYTES % 57.6 % (18.0-39.1); MEAN CORPUSCULAR HEMOGLOBIN 29.7 pg (28-32); MEAN CORPUSCULAR HGB CONC 32.7 g/dL (31-35); MEAN CORPUSCULAR VOLUME 90.7 fL (81-99); MONOCYTES # (AUTO) 0.8 (0.2-0.8); MONOCYTES % 5.6 % (4.4-11.3); NEUTROPHILS # (AUTO) 5.3 (2.1-6.9); NEUTROPHILS % 35.3 % (38.7-80.0); PLATELET COUNT 250 x10e3/uL (140-360); RED BLOOD COUNT 5.46 x10e6/uL (3.6-5.1); RED CELL DISTRIBUTION WIDTH 12.9 % (11.7-14.4)
[2020-11-17] MEDS ORDERED: SODIUM CHLORIDE 0.9% 500ML 500 ML IV ONE (14:45)
[2020-11-17 14:50] LABS: INR 2.29; PARTIAL THROMBOPLASTIN TIME 35.2 seconds (23.8-35.5); PROTHROMBIN TIME 27.1 seconds (11.9-14.5)
[2020-11-17 14:58] LABS: ALANINE AMINOTRANSFERASE 19 IU/L (0-55); ALBUMIN 3.9 g/dL (3.5-5.0); ALBUMIN/GLOBULIN RATIO 1.1 (0.8-2.0); ALKALINE PHOSPHATASE 89 IU/L (40-150); ANION GAP 15.9 mmol/L (8-16); BLOOD UREA NITROGEN 18 mg/dL (7-26); BUN/CREATININE RATIO 25 (6-25); CALCIUM 10.2 mg/dL (8.4-10.2); CARBON DIOXIDE 26 mmol/L (22-29); CHLORIDE 104 mmol/L (98-107); CREATINE KINASE 54 IU/L (29-168); CREATININE, SERUM 0.72 mg/dL (0.57-1.11); EST GLOMERULAR FILTRATION RATE > 60 ML/MIN (60-); GLUCOSE 149 mg/dL (74-118); MAGNESIUM 2.1 MG/DL (1.3-2.1); POTASSIUM 3.9 mmol/L (3.5-5.1); SODIUM 142 mmol/L (136-145)
[2020-11-17 15:18] LABS: THYROID STIMULATING HORMONE 1.824 uIU/mL (0.350-4.940)
[2020-11-17 17:46] LABS: LYMPHOCYTES % (MANUAL) 37 % (19-48); METAMYELOCYTES % (MANUAL) 1 % (0-0); NEUTROPHILS % (MANUAL) 43 % (40-74); PLATELET ESTIMATE ADEQUATE; PLATELET MORPHOLOGY COMMENT NORMAL; RBC MORPHOLOGY COMMENT NORMAL; SMUDGE CELLS FEW
[2020-11-17] MEDS ORDERED: HYDROCHLOROTHIA25 MG PO (18:34)
[2020-11-17] MEDS ORDERED: DIGOXIN125 MCG PO (18:35)
[2020-11-17] MEDS ORDERED: LOSARTAN POTASS25 MG PO (18:36)
[2020-11-17 19:30] VITALS: BP 149/75
[2020-11-17 20:00] VITALS: BP 149/75
[2020-11-17 20:44] VITALS: BP 149/75
[2020-11-17] MEDS ORDERED: WARFARIN SOD 2.5 MG TAB PO ONE (22:00)
[2020-11-17] MEDS: PROPAFENONE HCL 150 MG TAB PO SCH (22:00)
[2020-11-18] VITALS: BP 153/62
[2020-11-18 04:00] VITALS: BP 140/80
[2020-11-18] MEDS: PROPAFENONE HCL 150 MG TAB PO SCH (04:59)
[2020-11-18 06:45] LABS: BASOPHILS # (AUTO) 0.1 (0.0-0.1); BASOPHILS % 0.7 % (0.0-1.0); EOSINOPHILS # (AUTO) 0.2 (0.0-0.4); HEMATOCRIT 45.4 % (34.2-44.1); HEMOGLOBIN 14.6 g/dL (12.0-16.0); LYMPHOCYTES # (AUTO) 7.5 (1.0-3.2); LYMPHOCYTES % 62.1 % (18.0-39.1); MEAN CORPUSCULAR HEMOGLOBIN 29.6 pg (28-32); MEAN CORPUSCULAR HGB CONC 32.2 g/dL (31-35); MEAN CORPUSCULAR VOLUME 91.9 fL (81-99); MONOCYTES # (AUTO) 0.7 (0.2-0.8); MONOCYTES % 5.5 % (4.4-11.3); NEUTROPHILS # (AUTO) 3.6 (2.1-6.9); NEUTROPHILS % 29.5 % (38.7-80.0); PLATELET COUNT 205 x10e3/uL (140-360); RED BLOOD COUNT 4.94 x10e6/uL (3.6-5.1); RED CELL DISTRIBUTION WIDTH 12.8 % (11.7-14.4)
[2020-11-18 07:50] LABS: ALANINE AMINOTRANSFERASE 15 IU/L (0-55); ALBUMIN 3.3 g/dL (3.5-5.0); ALBUMIN/GLOBULIN RATIO 1.1 (0.8-2.0); ALKALINE PHOSPHATASE 70 IU/L (40-150); ANION GAP 14.6 mmol/L (8-16); BLOOD UREA NITROGEN 13 mg/dL (7-26); BUN/CREATININE RATIO 21 (6-25); CARBON DIOXIDE 25 mmol/L (22-29); CHLORIDE 105 mmol/L (98-107); CHOL/HDL RATIO 3.9 (3.0-3.6); CHOLESTEROL 160 MD/DL (0-199); CREATININE, SERUM 0.62 mg/dL (0.57-1.11); EST GLOMERULAR FILTRATION RATE > 60 ML/MIN (60-); GLUCOSE 96 mg/dL (74-118); HDL CHOLESTEROL 41 MG/DL (40-60); LDL CHOLESTEROL 95 MG/DL (60-130); POTASSIUM 3.6 mmol/L (3.5-5.1); SODIUM 141 mmol/L (136-145); TRIGLYCERIDES 118 MG/DL (0-149)
[2020-11-18 08:21] LABS: CREATINE KINASE MB 2.1 ng/mL (0-5.0)
[2020-11-18] MEDS ORDERED: HYDROCHLOROTHIAZIDE 25 MG TAB PO SCH (09:00)
[2020-11-18] MEDS ORDERED: DIGOXIN 0.125 MG TAB PO SCH (09:00)
[2020-11-18] MEDS ORDERED: LOSARTAN POTASSIUM 25 MG TAB PO SCH (09:00)
[2020-11-18] MEDS ORDERED: WARFARIN SOD 2.5 MG TAB PO SCH (09:00)
== END 2020-11-18 08:10 | disposition home or self-care (01) ==
LOC: ER 13:59 → ERHOLD 16:25 → MED/SURG2 18:17
PROVIDERS: ADMIT Internal Medicine; ATTEND Internal Medicine
DX: I48.20 Chronic atrial fibrillation, unspecified (principal); I48.0 Paroxysmal atrial fibrillation; I11.0 Hypertensive heart disease with heart failure; I50.33 Acute on chronic diastolic (congestive) heart failure; R51.9 Headache, unspecified; D72.829 Elevated white blood cell count, unspecified; E78.5 Hyperlipidemia, unspecified; F41.9 Anxiety disorder, unspecified; Z88.8 Allergy status to other drugs, medicaments and biological substances; Z88.6 Allergy status to analgesic agent; Z91.041 Radiographic dye allergy status; Z79.01 Long term (current) use of anticoagulants; Z20.822 Contact with and (suspected) exposure to COVID-19; Z86.711 Personal history of pulmonary embolism; Z86.73 Personal history of transient ischemic attack (TIA), and cerebral infarction without residual deficits; Z82.49 Family history of ischemic heart disease and other diseases of the circulatory system
CPT/HCPCS: 36415 ×2; 70450; 71045; 80053 ×2; 80061; 80162; 82550 ×2; 82553 ×2; 83735; 83880; 84443; 84484 ×2; 85025 ×2; 85610; 85730; 93005; 99284; G0378 ×2; J7040; U0002

== ENCOUNTER 2021-03-27 17:58 | Emergency (ER) | payer OTHER, MEDICARE ==
[~2021-03-27] VITALS: Ht 167.6 cm; Wt 58.5 kg
[~2021-03-27 17:58] MED LIST changes: +HYDROCHLOROTHIA25 MG PO; +LOSARTAN POTASS25 MG PO
[2021-03-27] MEDS ORDERED: BACITRACIN ZINC 0.9GM TP ONE ×2 (19:45)
== END 2021-03-27 21:00 | disposition home or self-care (01) ==
LOC: ER 18:48
DX: S51.011A Laceration without foreign body of right elbow, initial encounter (principal); S50.01XA Contusion of right elbow, initial encounter; W01.198A Fall on same level from slipping, tripping and stumbling with subsequent striking against other object, initial encounter; Y93.01 Activity, walking, marching and hiking; I10 Essential (primary) hypertension; I48.91 Unspecified atrial fibrillation; F41.9 Anxiety disorder, unspecified; Z86.73 Personal history of transient ischemic attack (TIA), and cerebral infarction without residual deficits
CPT/HCPCS: 99282

== ENCOUNTER 2021-08-25 13:37 | Emergency (ER) | payer MEDICARE ==
[~2021-08-25] VITALS: Ht 167.6 cm; Wt 58.5 kg
[2021-08-25 15:26] LABS: BASOPHILS # (AUTO) 0.1 (0.0-0.1); BASOPHILS % 0.3 % (0.0-1.0); EOSINOPHILS # (AUTO) 0.1 (0.0-0.4); EOSINOPHILS % 0.6 % (0.0-6.0); HEMATOCRIT 47.8 % (34.2-44.1); HEMOGLOBIN 15.3 g/dL (12.0-16.0); LYMPHOCYTES # (AUTO) 10.3 (1.0-3.2); LYMPHOCYTES % 60.1 % (18.0-39.1); MEAN CORPUSCULAR HEMOGLOBIN 29.9 pg (28-32); MEAN CORPUSCULAR VOLUME 93.4 fL (81-99); MONOCYTES # (AUTO) 0.8 (0.2-0.8); MONOCYTES % 4.8 % (4.4-11.3); NEUTROPHILS # (AUTO) 5.8 (2.1-6.9); NEUTROPHILS % 33.9 % (38.7-80.0); PLATELET COUNT 222 x10e3/uL (140-360); RED BLOOD COUNT 5.12 x10e6/uL (3.6-5.1); RED CELL DISTRIBUTION WIDTH 12.8 % (11.7-14.4)
[2021-08-25 15:38] LABS: INR 1.56; PARTIAL THROMBOPLASTIN TIME 29.5 seconds (23.8-35.5); PROTHROMBIN TIME 19.9 seconds (11.9-14.5)
[2021-08-25 15:48] LABS: ALBUMIN 3.8 g/dL (3.5-5.0); ALBUMIN/GLOBULIN RATIO 1.1 (0.8-2.0); ANION GAP 16.6 mmol/L (8-16); CALCIUM 9.7 mg/dL (8.4-10.2); CREATININE, SERUM 0.69 mg/dL (0.57-1.11); MAGNESIUM 2.2 MG/DL (1.3-2.1); POTASSIUM 3.6 mmol/L (3.5-5.1)
[2021-08-25 16:07] LABS: CREATINE KINASE MB 1.8 ng/mL (0-5.0); THYROID STIMULATING HORMONE 1.113 uIU/mL (0.350-4.940)
[2021-08-25 16:13] LABS: CLARITY,URINE CLEAR (CLEAR); COLOR,URINE YELLOW (YELLOW)
[2021-08-25 16:14] LABS: KETONES,URINE NEGATIVE (NEGATIVE); LEUKOCYTE ESTERASE ,URINE NEGATIVE (NEGATIVE); NITRITE,URINE NEGATIVE (NEGATIVE); PROTEIN,URINE DIPSTICK NEGATIVE (NEGATIVE); URINE UROBILINOGEN 0.2 mg/dL (0.2 - 1)
[2021-08-25 16:24] LABS: EPITHELIAL CELLS,URINE RARE /LPF; RBC,URINE 0-5 /HPF (0-5); WBC,URINE (MAN) 0-5 /HPF (0-5)
== END 2021-08-25 17:26 | disposition home or self-care (01) ==
LOC: ER 14:00
DX: R00.2 Palpitations (principal); I10 Essential (primary) hypertension; I48.91 Unspecified atrial fibrillation; F41.9 Anxiety disorder, unspecified; Z79.01 Long term (current) use of anticoagulants
CPT/HCPCS: 36415; 71045; 80053; 80162; 81001; 82550; 82553; 83735; 83880; 84443; 84484; 85025; 85610; 85730; 87086; 93005; 99284

== ENCOUNTER 2021-12-06 12:32 | Inpatient (IN) | payer MEDICARE ==
[~2021-12-06] VITALS: Ht 167.6 cm; Wt 58.5 kg
[2021-12-06] MEDS ORDERED: SODIUM CHLORIDE 0.9% 1000ML 500 ML IV STA (12:46)
[2021-12-06] MEDS ORDERED: ASPIRIN 81 MG CHEW TAB PO ONE ×2 (13:00→16:30)
[2021-12-06 13:03] LABS: BASOPHILS # (AUTO) 0.1 (0.0-0.1); BASOPHILS % 0.3 % (0.0-1.0); EOSINOPHILS # (AUTO) 0.1 (0.0-0.4); EOSINOPHILS % 0.7 % (0.0-6.0); HEMATOCRIT 48.3 % (34.2-44.1); HEMOGLOBIN 15.6 g/dL (12.0-16.0); LYMPHOCYTES # (AUTO) 12.8 (1.0-3.2); LYMPHOCYTES % 66.2 % (18.0-39.1); MEAN CORPUSCULAR HEMOGLOBIN 30.1 pg (28-32); MEAN CORPUSCULAR HGB CONC 32.3 g/dL (31-35); MEAN CORPUSCULAR VOLUME 93.1 fL (81-99); MONOCYTES # (AUTO) 0.9 (0.2-0.8); MONOCYTES % 4.4 % (4.4-11.3); NEUTROPHILS # (AUTO) 5.5 (2.1-6.9); NEUTROPHILS % 28.2 % (38.7-80.0); PLATELET COUNT 235 x10e3/uL (140-360); RED BLOOD COUNT 5.19 x10e6/uL (3.6-5.1)
[2021-12-06 13:11] LABS: CLARITY,URINE CLEAR (CLEAR); COLOR,URINE YELLOW (YELLOW); KETONES,URINE NEGATIVE (NEGATIVE); LEUKOCYTE ESTERASE ,URINE NEGATIVE (NEGATIVE); NITRITE,URINE NEGATIVE (NEGATIVE); PROTEIN,URINE DIPSTICK 1+ (NEGATIVE); URINE UROBILINOGEN 0.2 mg/dL (0.2 - 1)
[2021-12-06 13:14] LABS: INR 1.55; PROTHROMBIN TIME 19.6 seconds (11.9-14.5)
[2021-12-06 13:15] LABS: PARTIAL THROMBOPLASTIN TIME 29.4 seconds (23.8-35.5)
[2021-12-06 13:24] LABS: ALBUMIN 3.9 g/dL (3.5-5.0); ALBUMIN/GLOBULIN RATIO 1.1 (0.8-2.0); CALCIUM 9.8 mg/dL (8.4-10.2); CREATININE, SERUM 0.72 mg/dL (0.57-1.11)
[2021-12-06 13:26] LABS: EPITHELIAL CELLS,URINE RARE /LPF; RBC,URINE 0-5 /HPF (0-5); WBC,URINE (MAN) 0-5 /HPF (0-5)
[2021-12-06 13:30] LABS: CREATINE KINASE MB 2.3 ng/mL (0-5.0)
[2021-12-06] MEDS ORDERED: DILTIAZEM HCL 5 MG/ML 5 ML VIAL IV STA (14:14)
[2021-12-06] MEDS ORDERED: POTASSIUM CHLORIDE 10MEQ EA PO ONE (14:30)
[2021-12-06] MEDS ORDERED: DIGOXIN INJ 0.25 MG/ML 2 ML AMP IV ONE (14:30)
[2021-12-06] MEDS ORDERED: SODIUM CHLORIDE FLUSH 10 ML SYR INJ PRN (16:30)
[2021-12-06 17:20] VITALS: BP 142/73
[2021-12-06] MEDS: AMIODARONE HCL 200 MG TAB PO SCH (18:30)
[2021-12-06] MEDS: METOPROLOL TARTRATE 25 MG TAB PO SCH ×2 (18:30→23:23)
[2021-12-06] MEDS: WARFARIN SOD 1 MG TAB PO SCH (18:31)
[2021-12-06 20:46] VITALS: BP 105/52
[2021-12-06 20:47] VITALS: BP 105/52
[2021-12-06 22:05] LABS: CREATINE KINASE MB 2.6 ng/mL (0-5.0)
[2021-12-06 23:58] VITALS: BP 115/53
[2021-12-07] VITALS (7 sets, daily range): BP systolic 134–157; BP diastolic 53–62
[2021-12-07 04:44] LABS: CREATINE KINASE MB 2.3 ng/mL (0-5.0)
[2021-12-07] MEDS: METOPROLOL TARTRATE 25 MG TAB PO SCH ×2 (05:09→17:52)
[2021-12-07 05:17] LABS: BASOPHILS # (AUTO) 0.1 (0.0-0.1); BASOPHILS % 0.4 % (0.0-1.0); EOSINOPHILS # (AUTO) 0.2 (0.0-0.4); EOSINOPHILS % 0.9 % (0.0-6.0); HEMATOCRIT 43.5 % (34.2-44.1); HEMOGLOBIN 13.9 g/dL (12.0-16.0); LYMPHOCYTES % 68.4 % (18.0-39.1); MEAN CORPUSCULAR HEMOGLOBIN 29.9 pg (28-32); MEAN CORPUSCULAR VOLUME 93.5 fL (81-99); MONOCYTES # (AUTO) 0.8 (0.2-0.8); MONOCYTES % 5.2 % (4.4-11.3); NEUTROPHILS % 24.9 % (38.7-80.0); PLATELET COUNT 216 x10e3/uL (140-360); RED BLOOD COUNT 4.65 x10e6/uL (3.6-5.1); RED CELL DISTRIBUTION WIDTH 13.1 % (11.7-14.4)
[2021-12-07 05:43] LABS: ANION GAP 11.1 mmol/L (8-16); CALCIUM 9.1 mg/dL (8.4-10.2); CREATININE, SERUM 0.66 mg/dL (0.57-1.11); MAGNESIUM 2.5 MG/DL (1.3-2.1); PHOSPHORUS 2.3 MG/DL (2.3-4.7); POTASSIUM 4.1 mmol/L (3.5-5.1)
[2021-12-07 06:08] LABS: CREATINE KINASE MB 2.2 ng/mL (0-5.0)
[2021-12-07] MEDS ORDERED: ASPIRIN 81 MG ENTERIC COATED PO SCH (09:00)
[2021-12-07] MEDS: DIGOXIN 0.125 MG TAB PO SCH (09:00)
[2021-12-07] MEDS: AMIODARONE HCL 200 MG TAB PO SCH (09:54)
[2021-12-07] MEDS: CITALOPRAM HYDROBROMIDE 20 MG TAB PO SCH (09:54)
[2021-12-07] MEDS: LOSARTAN POTASSIUM 25 MG TAB PO SCH (09:55)
[2021-12-07] MEDS: HYDROCHLOROTHIAZIDE 25 MG TAB PO SCH (09:56)
[2021-12-07 12:08] LABS: CHOL/HDL RATIO 4.2 (3.0-3.6)
[2021-12-07 12:27] LABS: THYROID STIMULATING HORMONE 1.252 uIU/mL (0.350-4.940)
[2021-12-07] MEDS: WARFARIN SOD 1 MG TAB PO SCH (17:00)
[2021-12-08 00:31] VITALS: BP 142/65
[2021-12-08 04:58] VITALS: BP 167/63
[2021-12-08 08:05] VITALS: BP 167/63
[2021-12-08 08:34] VITALS: BP 162/60
[2021-12-08] MEDS: AMIODARONE HCL 200 MG TAB PO SCH (09:00)
[2021-12-08] MEDS: LOSARTAN POTASSIUM 25 MG TAB PO SCH (09:00)
[2021-12-08] MEDS: HYDROCHLOROTHIAZIDE 25 MG TAB PO SCH (09:00)
[2021-12-08] MEDS: CITALOPRAM HYDROBROMIDE 20 MG TAB PO SCH (09:00)
[2021-12-08] MEDS: DIGOXIN 0.125 MG TAB PO SCH (09:00)
[2021-12-08] MEDS: METOPROLOL TARTRATE 25 MG TAB PO SCH (09:00)
[2021-12-08] MEDS ORDERED: METOPROLOL TART25 MG PO (12:08)
[2021-12-08] MEDS ORDERED: AMIODARONE HCL200 MG PO (12:08)
[2021-12-08 12:20] VITALS: BP 144/61
== END 2021-12-08 13:32 | disposition home or self-care (01) | DRG 310 ==
LOC: ER 12:56 → ERHOLD 16:21 → MED/SURG2 16:57
PROVIDERS: ADMIT Internal Medicine; ATTEND Internal Medicine
DX: I48.0 Paroxysmal atrial fibrillation (principal); Z79.01 Long term (current) use of anticoagulants; I10 Essential (primary) hypertension; Z86.711 Personal history of pulmonary embolism; I87.2 Venous insufficiency (chronic) (peripheral); I25.10 Atherosclerotic heart disease of native coronary artery without angina pectoris; R01.1 Cardiac murmur, unspecified; Z20.822 Contact with and (suspected) exposure to COVID-19; F41.9 Anxiety disorder, unspecified
CPT/HCPCS: 36415; 71045; 80048; 80053; 80061; 80162; 81001; 82550; 82553; 82948; 83605; 83735; 83880; 84100; 84443; 84484; 85025; 85610; 85730; 87040; 93005; 94799; 99284; J1160; J7030; U0002

== ENCOUNTER 2022-04-04 06:52 | Emergency (ER) | payer MEDICARE ==
[~2022-04-04] VITALS: Ht 167.6 cm; Wt 58.5 kg
[~2022-04-04 06:52] MED LIST changes: +AMIODARONE HCL200 MG PO; +METOPROLOL TART25 MG PO
== END 2022-04-04 08:02 | disposition home or self-care (01) ==
LOC: ER 06:56
DX: R00.2 Palpitations (principal); I10 Essential (primary) hypertension; I48.91 Unspecified atrial fibrillation; Z86.73 Personal history of transient ischemic attack (TIA), and cerebral infarction without residual deficits
CPT/HCPCS: 93005; 99283

== ENCOUNTER 2024-12-01 21:08 | Emergency (ER) | payer MEDICARE ==
[~2024-12-01] VITALS: Ht 167.6 cm; Wt 58.5 kg
[2024-12-01 21:10] VITALS: PULSE 84; RESP 18; TEMP 98.6; O2SAT 98
== END 2024-12-01 22:20 | disposition home or self-care (01) ==
LOC: ER 21:21
DX: S81.812A Laceration without foreign body, left lower leg, initial encounter (principal); W45.8XXA Other foreign body or object entering through skin, initial encounter; Y92.89 Other specified places as the place of occurrence of the external cause; I10 Essential (primary) hypertension; I48.91 Unspecified atrial fibrillation; Z86.73 Personal history of transient ischemic attack (TIA), and cerebral infarction without residual deficits
CPT/HCPCS: 99283